=== PATIENT | male | born 1950 | race Caucasian/White ===

== ENCOUNTER → 2023-10-26 11:34 | Outpatient (REF) | payer BC, SELFPAY ==
[2023-10-26 13:39] LABS: PSA, Total - Diagnostic 0.16 ng/ml (0.0-4.0)
== END ==
LOC: REG 11:34
PROVIDERS: ATTENDING PHYSICIAN Urology
DX: C61 Malignant neoplasm of prostate (principal)
CPT/HCPCS: 36415; 84153

== ENCOUNTER → 2024-01-14 09:47 | Outpatient (REF) | payer BC, SELFPAY | LOC: DHSLP 09:47 | PROVIDERS: ATTENDING PHYSICIAN Internal Medicine; FAMILY PHYSICIAN Internal Medicine | DX: G47.33 Obstructive sleep apnea (adult) (pediatric) (principal) | CPT/HCPCS: 95800 ==

== ENCOUNTER 2024-02-23 08:00 | Emergency (ER) | payer BC, SELFPAY ==
[2024-02-23 08:03] VITALS: BP 201/99
--- NOTE | 2024-02-23 08:36 | ED.GENMED ---
History of Present Illness
General
Chief Complaint: Flank Pain
Source: patient
Exam Limitations: none
Time Seen by Provider: 02/23/24 08:31
Nursing documentation reviewed up to this point in time: agreed with
History of Present Illness
History of Present Illness:
Patient is a 73-year-old male who presents to the ER complaint of left flank pain that woke him up around 4 AM. He does have a history of kidney stones over 10 years ago and this does feel similar. He was nauseous with this pain. He did take his
's Percocet at home which did not help. He denies any difficulty urinating. Denies any blood in his urine. Denies any fever chills or injury. He denies any testicle pain.
Review of Systems
Review of Systems
Allergies reviewed?: Yes
All Other Systems: ROS reviewed and negative except as documented in HPI and ROS
Constitutional: Reports no symptoms; Denies fever, fatigue or chills
Respiratory: Reports no symptoms
Cardiac: Reports no symptoms
ABD/GI: Reports no symptoms
: Reports flank pain; Denies dysuria, difficulty voiding, urgency, bleeding, dark urine or discharge
Musculoskeletal: Reports no symptoms
Skin: Reports no symptoms
Neurological: Reports no symptoms
Psychiatric: Reports no symptoms
Phy Exam
General Physical Exam
General Presentation: no apparent distress
General age: appears stated age
General Skin: warm and dry
General Habitus: normal
General Mental: alert
General Hydration: appears well hydrated
Neurological Exam
Neurological Exam: alert and oriented x3
Musculoskeletal Exam
Musculoskeletal Exam: full ROM
Skin Exam
Skin Exam: normal color and warm/dry
Psychiatric Exam
Psychiatric Exam: normal mood/affect
Course
Orders/Labs/Results
Orders:
Orders
02/23/24 08:51
IV Insert/Care/Rem.- Treatment PRN
0.9% Sodium Chloride 1000 ml [Nss] 1,000 ml IV BOLUS
Ketorolac [Toradol] 15 mg IV NOW STA
02/23/24 08:52
CT Abd/pel Without Iv Or Oral Urgent
Comment:
Reason For Exam: left flank pain
Ondansetron Injectable [Zofran] 4 mg IV NOW STA
02/23/24 09:00
Complete Blood Count/With Diff Urgent
Comprehensive Metabolic Panel Urgent
02/23/24 09:03
UA Reflex to Culture [Urinalysis Reflex To Culture] Urgent
Date Specimen was Collected: 02/23/24
Time Specimen was Collected: 09:03
Urine Microscopic Reflex Cult Urgent
02/23/24 11:04
Vital Signs- Treatment ONCE
Frequency: Once
Abnormal Lab Results
02/23/24 02/23/24
09:00 09:03
RBC 4.36 L 10^6/uL
(4.70-6.10)
Hct 37.6 L %
(39.0-52.0)
Abs Immat Gran (auto) 0.1 H 10^3/uL
(0-0.05)
Absolute Neuts (auto) 7.3 H 10^3/uL
(1.4-6.5)
Absolute Lymphs (auto) 1.1 L 10^3/uL
(1.2-3.4)
Immature Gran % 0.6 H %
(0-0.5)
Neutrophils % 76.8 H %
(42.2-75.2)
Lymphocytes % 11.5 L %
(20.5-51.1)
BUN 32 H mg/dl
(9-20)
Glucose 129 H mg/dl
(70-99)
Ur Occult Blood Reflex Trace A
(Negative)
Urine Bacteria (Reflex) Few A
(Negative)
02/23/24 09:00
02/23/24 09:00
Vital Signs
Initial and Last Documented VS:
Initial Vital Signs
Pulse Resp BP Pulse Ox
59 18 201/99 98
02/23/24 08:03 02/23/24 08:03 02/23/24 08:03 02/23/24 08:03
Last Documented Vital Signs
Pulse Resp BP Pulse Ox
59 18 143/79 97
02/23/24 08:03 02/23/24 08:03 02/23/24 11:11 02/23/24 11:12
MDM/Problems Addressed
Differential Diagnosis Includes:
not limited to : renal colic less likely infection
MDM/Problems Addressed:
Patient is a 73-year-old male with renal stones presents with left flank pain. CAT scan shows mild fullness along the course of left ureter without ureteral calculus there is associated mild left hydronephrosis and perinephric stranding no bladder
calculus possible recently passed calculus. Incidental pulmonary nodule reviewed with patient.
Patient with a normal white count, normal creatinine BUN elevated to 32 patient was given fluids Toradol. Urine is not infected.
Patient feeling better will DC with follow-up by family doctor and urology as needed discussed with patient to increase fluids.
*Radiology
Radiology exam reviewed: radiology read reviewed
*Critical Care Note
Total Time (30-74mins, 75-104mins- exclusive of procedures): Not Applicable
ED Attending Note
-
Portions of this chart may have been created with voice recognition software.� Occasional wrong word or��sound alike� substitutions may have occurred due to the inherent limitations of voice recognition software.
Discharge Plan
Departure
Patient Disposition: Home (Routine Discharge)
Date of Disposition: 02/23/24
Time of Disposition: 11:15
Patient with high blood pressure during this ER visit?: Yes
Condition: Fair
Covid-19: Not Applicable
Discharge Problem:
Acute flank pain
Instructions: Kidney Stones (DC), Flank Pain (DC)
Referrals:
Edgar Crum MD [Family Provider] -
Epifanio Horner MD [Active] -
Activity Restrictions/Additional Instructions:
As discussed your CAT scan is consistent with most likely a recently passed stone. Your labs reveal that you are dehydrated here in the ER please increase fluids. You were given fluids here in the ER and a medication called Toradol which is an
anti-inflammatory medication for discomfort. Follow-up with your family doctor the next several days and neurology as needed. Return if any worsening of symptoms. In addition please follow up with your pcp for re-evaluation of incidental
pulmonary nodules.
Interventions
Interventions:
*Risk Screen - Suicide Last Done: 02/23/24 08:03
*General Assessment Last Done: 02/23/24 08:03
*Neglect/Abuse Screening Last Done: 02/23/24 08:03
Discharge Date and Time
Print Language: SOMALI
[2024-02-23] MEDS: TORADOL 15 MG IV (09:04)
[2024-02-23 09:06] LABS: % Basophils 1.1 % (0-2); % Immature Granulocytes 0.6 % (0-0.5); % Lymphocytes 11.5 % (20.5-51.1); % Neutrophils 76.8 % (42.2-75.2); Absolute Basophils 0.1 10^3/uL (0-0.2); Absolute Eosinophils 0.4 10^3/uL (0-0.7); Absolute Immature Granulocytes 0.1 10^3/uL (0-0.05); Absolute Lymphocytes 1.1 10^3/uL (1.2-3.4); Absolute Monocytes 0.6 10^3/uL (0.1-0.6); Absolute Neutrophils 7.3 10^3/uL (1.4-6.5); Hematocrit 37.6 % (39.0-52.0); Hemoglobin 13.2 g/dL (13.0-18.0); Mean Corp Hgb Conc. 35.1 g/dL (33.0-37.0); Mean Corpuscular Hgb 30.3 pg (27.0-31.0); Mean Corpuscular Volume 86.2 fL (80.0-94.0); Mean Platelet Volume 10.1 fL (7.4-10.4); Nucleated Red Blood Cells % 0 % (-); Platelet Count 258 10^3/uL (130-400); Red Blood Cell Count 4.36 10^6/uL (4.70-6.10); Red Cell Dist. Width 13.5 % (11.5-14.5); White Blood Cell Count 9.5 10^3/uL (4.8-10.8)
[2024-02-23] MEDS: NSS 1000 IV (09:06)
[2024-02-23 09:08] VITALS: BP 147/82
[2024-02-23 09:16] LABS: Urine Albumin Trace (Neg - Trace); Urine Bilirubin Negative (Negative); Urine Character Clear (Clear); Urine Color Yellow; Urine Glucose Negative (Negative); Urine Ketone Negative (Negative); Urine Leukocyte Negative (Negative); Urine Nitrite Negative (Negative); Urine Occult Blood Trace (Negative); Urine Specific Gravity 1.025 (<1.030); Urine Urobilinogen Negative (Neg - 1+)
[2024-02-23 09:33] LABS: Urine Mucus Few
[2024-02-23 09:33] LABS: ALT (SGPT) 28 U/L (0-50); AST (SGOT) 36 U/L (17-59); Albumin 4.3 g/dl (3.5-5.0); Alkaline Phosphatase 119 U/L (38-126); Blood Urea Nitrogen 32 mg/dl (9-20); Calcium 9.2 mg/dl (8.4-10.2); Carbon Dioxide 26 mmol/L (22-30); Chloride 105 mmol/L (98-107); Glucose 129 mg/dl (70-99); Potassium 4.3 mmol/L (3.5-5.1); Sodium 141 mmol/L (135-145); Total Bilirubin 0.7 mg/dl (0.2-1.3); Total Protein 6.9 g/dl (6.3-8.2); eGFR > 60.00
[2024-02-23 09:34] LABS: Urine Bacteria Few (Negative); Urine Red Blood Cell 0-2 /HPF (0-2); Urine White Cell 0-2 /HPF (0-5)
[2024-02-23 11:11] VITALS: BP 143/79
== END 2024-02-23 11:42 | disposition home or self-care (01) ==
LOC: EMR 08:00
PROVIDERS: Nurse Practitioner; EMERGENCY PHYSICIAN Emergency Medicine; FAMILY PHYSICIAN Internal Medicine
DX: R10.9 Unspecified abdominal pain (principal); Z87.442 Personal history of urinary calculi
CPT/HCPCS: 99284; 96374; 96375; 96361; 74176; 80053; 81003; 81015; 85025

== ENCOUNTER 2024-03-15 16:19 | Emergency (ER) | payer BC, SELFPAY ==
[2024-03-15 16:30] VITALS: BP 174/94
[2024-03-15 16:51] VITALS: BMI 35.9
[2024-03-15] MEDS: PERCOCET 5/325 1 TABLET PO ×2 (17:52→20:54)
[2024-03-15 20:00] VITALS: BP 146/88
--- NOTE | 2024-03-15 23:19 | ED.MUSCINJ ---
HPI-Injury
General
Chief Complaint: Fall
Source: patient
Exam Limitations: none
Time Seen by Provider: 03/15/24 17:24
Nursing documentation reviewed up to this point in time: agreed with
History of Present Illness-Injury
Is this injury a work related problem?: No
Is pt an associate of [facility]/[place]?: No
Initial Injury comments:
Patient states he was closing his pool, lost his footing and fell. Landed on left shoulder. COmplains of pain to left shoulder, left scapula, left lateral ribs, left elbow, left forearm, left hand. Brought to ED by family for eval. Injury
occurred just [employer]
Past History
Past History
ED Past Medical History: GERD, HTN, Hypercholesterolemia and Hypothyroidism
Review of Systems
Review of Systems
Allergies reviewed?: Yes
All Other Systems: ROS reviewed and negative except as documented in HPI and ROS
Constitutional: Reports no symptoms
EENT: Reports no symptoms
Respiratory: Reports no symptoms
Cardiac: Reports no symptoms
ABD/GI: Reports no symptoms
Musculoskeletal: Reports joint pain (Pain to left shoulder, scapula, lateral ribs, elbow, forearm, hand)
Skin: Reports no symptoms
Neurological: Reports no symptoms
Psychiatric: Reports no symptoms
Musculoskeletal Injury Exam
Musculoskeletal Injury Exam
Left Shoulder:
Pain with Movement?: Moderate
Tender to palpation?: Moderate
Soft tissue swelling?: Moderate
External deformity and angulation?: None
Joint effusion?: None
Contusion?: Moderate
Hematoma-local bleeding into tissue?: Mild
Strain- Sprain- Tear (Connective tissue injury)?: Moderate
Crepitus with movement?: No
Joint instability?: No
Malalignment/deformity?: No
Range of motion: Limited
Distal skin color and temperature: normal-warm & good color
Capillary Refill: normal
Normal distal neurovascular exam?: Yes
Peripheral Pulses: radial (left): 3+
Left Lateral Chest:
Pain with Movement?: Moderate
Tender to palpation?: Moderate
Soft tissue swelling?: None
External deformity and angulation?: None
Joint effusion?: None
Contusion?: Moderate
Hematoma-local bleeding into tissue?: None
Strain- Sprain- Tear (Connective tissue injury)?: None
Crepitus with movement?: No
Joint instability?: No
Malalignment/deformity?: No
Range of motion: Limited
Distal skin color and temperature: normal-warm & good color
Capillary Refill: normal
Normal distal neurovascular exam?: No
Left Lower Arm:
Pain with Movement?: Moderate
Tender to palpation?: Moderate
Soft tissue swelling?: None
External deformity and angulation?: None
Joint effusion?: None
Contusion?: Moderate
Hematoma-local bleeding into tissue?: None
Strain- Sprain- Tear (Connective tissue injury)?: None
Crepitus with movement?: No
Joint instability?: No
Malalignment/deformity?: No
Range of motion: Limited
Distal skin color and temperature: normal-warm & good color
Capillary Refill: normal
Normal distal neurovascular exam?: Yes
Left Hand:
Pain with Movement?: Moderate
Tender to palpation?: Moderate
Soft tissue swelling?: None
External deformity and angulation?: None
Joint effusion?: None
Contusion?: Moderate
Hematoma-local bleeding into tissue?: None
Strain- Sprain- Tear (Connective tissue injury)?: None
Crepitus with movement?: No
Joint instability?: No
Malalignment/deformity?: No
Range of motion: Limited
Distal skin color and temperature: normal-warm & good color
Capillary Refill: normal
Normal distal neurovascular exam?: Yes
Left Elbow:
Pain with Movement?: Moderate
Tender to palpation?: Moderate
Soft tissue swelling?: None
External deformity and angulation?: None
Joint effusion?: None
Contusion?: Moderate
Hematoma-local bleeding into tissue?: None
Strain- Sprain- Tear (Connective tissue injury)?: None
Crepitus with movement?: No
Joint instability?: No
Malalignment/deformity?: No
Range of motion: Limited
Distal skin color and temperature: normal-warm & good color
Capillary Refill: normal
Normal distal neurovascular exam?: Yes
Phy Exam
General Physical Exam
General Presentation: moderate distress
General age: appears stated age
General Skin: warm and dry
General Habitus: normal
General Mental: alert
General Hydration: appears well hydrated
Cardiovascular Exam
Cardiovascular Exam: regular rate/rhythm
Pulmonary Exam
Pulmonary Exam: no respiratory distress
Musculoskeletal Exam
Musculoskeletal Exam: neuro vasc intact
Skin Exam
Skin Exam: normal color, warm/dry and no rash
Psychiatric Exam
Psychiatric Exam: normal mood/affect
Injury Course
Orders/Labs/Results
Orders:
Orders
03/15/24 16:49
CR Ribs-left 3 Vw W/pa Chest Urgent
Comment:
Reason For Exam: trauma
CR Shoulder, Trauma - Left Urgent
Comment:
Reason For Exam: trauma
03/15/24 17:47
Oxycodone/Acetaminophen [Percocet 5/325] 1 tablet PO NOW STA
03/15/24 18:10
Elbow, 3 view, Left [CR Elbow - Left Min 3 Views ] Urgent
Comment:
Reason For Exam: fall
Scapula, Left Complete CR [CR Scapula - Left Complete ] Urgent
Comment:
Reason For Exam: fall
03/15/24 18:25
Forearm, Left 2 View [CR Forearm - Left 2 View] Urgent
Comment:
Reason For Exam: fall
03/15/24 20:27
Shoulder Immobilizer Left- Tx ONCE
03/15/24 20:50
Oxycodone/Acetaminophen [Percocet 5/325] 1 tablet .ROUTE .STK-MED ONE
03/15/24 20:54
Oxycodone/Acetaminophen [Percocet 5/325] 1 tablet PO NOW STA
*Radiology
Radiology exam reviewed: radiology read reviewed
*Pulse Oximetry
Patient hypoxic: no
*Critical Care Note
Total Time (30-74mins, 75-104mins- exclusive of procedures): Not Applicable
ED Attending Note
-
Portions of this chart may have been created with voice recognition software.� Occasional wrong word or��sound alike� substitutions may have occurred due to the inherent limitations of voice recognition software.
Discharge Plan
Departure
Patient Disposition: Home (Routine Discharge)
Date of Disposition: 03/15/24
Time of Disposition: 20:28
Patient with high blood pressure during this ER visit?: No
Condition: Good
Covid-19: Not Applicable
Discharge Problem:
Fracture of proximal humerus
Instructions: Preventing falls in adults, Ibuprofen, Upper Arm Fracture, How to Use a Shoulder Sling, Using Cold for Pain
Prescriptions:
New
hydrocodone-acetaminophen 5-325 mg tablet
1 - 2 tab PO Q4H PRN (Reason: Pain) Qty: 20 0RF
No Action
aspirin
atorvastatin
famotidine
levothyroxine
lisinopril
meloxicam
Referrals:
Jamie Swenson MD [Active] - Call in 1-3 days for appt
Edgar Crum MD [Family Provider] -
Stand Alone Forms: Return to Work
Interventions
Interventions:
*Risk Screen - Suicide Last Done: 03/15/24 16:30
*General Assessment Last Done: 03/15/24 16:30
*Neglect/Abuse Screening Last Done: 03/15/24 16:30
ED- Fall Risk Assessment Last Done: 03/15/24 21:42
*ED COVID-19 Vaccine History Last Done: 03/15/24 20:00
*Nursing Disposition Last Done: 03/15/24 21:42
ED-Musculoskeletal Assessment Last Done: 03/15/24 16:50
ED- Neurological Assessment Last Done: 03/15/24 16:50
ED-Skin Assessment Last Done: 03/15/24 16:50
Discharge Date and Time
Discharge Date/Time: 03/15/24 21:42
Print Language: SLOVAK
== END 2024-03-15 21:42 | disposition home or self-care (01) ==
LOC: EMR 16:19
PROVIDERS: EMERGENCY PHYSICIAN Emergency Medicine; FAMILY PHYSICIAN Internal Medicine
DX: S42.202A Unspecified fracture of upper end of left humerus, initial encounter for closed fracture (principal); W19.XXXA Unspecified fall, initial encounter; K21.9 Gastro-esophageal reflux disease without esophagitis; I10 Essential (primary) hypertension; E78.00 Pure hypercholesterolemia, unspecified; E03.9 Hypothyroidism, unspecified
CPT/HCPCS: 99283; 71101; 73010; 73030; 73080; 73090

== ENCOUNTER → 2024-11-04 13:37 | Outpatient (REF) | payer BC, SELFPAY ==
[2024-11-04 14:41] LABS: Hematocrit 37.7 % (39.0-52.0); Hemoglobin 12.9 g/dL (13.0-18.0); Mean Corp Hgb Conc. 34.2 g/dL (33.0-37.0); Mean Corpuscular Volume 90.6 fL (80.0-94.0); Nucleated Red Blood Cells % 0 % (-); Platelet Count 240 10^3/uL (130-400); Red Cell Dist. Width 13.2 % (11.5-14.5)
[2024-11-04 14:41] LABS: Urine Character Clear (Clear)
[2024-11-04 15:43] LABS: ALT (SGPT) 23 U/L (0-50); AST (SGOT) 26 U/L (17-59); Albumin 4.1 g/dl (3.5-5.0); Alkaline Phosphatase 106 U/L (38-126); Blood Urea Nitrogen 19 mg/dl (9-20); Calcium 9.2 mg/dl (8.4-10.2); Carbon Dioxide 30 mmol/L (22-30); Chloride 110 mmol/L (98-107); Glucose 91 mg/dl (70-99); HDL Cholesterol 32 mg/dl; LDL Cholesterol, Calculated 58 mg/dl; Potassium 4.9 mmol/L (3.5-5.1); Sodium 140 mmol/L (135-145); Total Protein 6.7 g/dl (6.3-8.2); Very Low Density Lipoprotein 12 mg/dl (0-30); eGFR > 60.00
[2024-11-04 16:12] LABS: PSA, Total - Diagnostic 0.23 ng/ml (0.0-4.0)
== END ==
LOC: REG 13:37
PROVIDERS: ATTENDING PHYSICIAN Internal Medicine; OTHER PHYSICIAN Urology
DX: C61 Malignant neoplasm of prostate (principal); I87.2 Venous insufficiency (chronic) (peripheral); I10 Essential (primary) hypertension; E03.9 Hypothyroidism, unspecified; Z86.73 Personal history of transient ischemic attack (TIA), and cerebral infarction without residual deficits; G47.33 Obstructive sleep apnea (adult) (pediatric); M17.32 Unilateral post-traumatic osteoarthritis, left knee; B35.4 Tinea corporis; Z86.0100 Personal history of colon polyps, unspecified; Z00.00 Encounter for general adult medical examination without abnormal findings
CPT/HCPCS: 36415; 80053; 80061; 81003; 84153; 84443; 85025